=== PATIENT | female | born 1990 | race Caucasian/White ===

== ENCOUNTER 2016-09-23 10:50 | Emergency (ER) | payer OTHER ==
[2016-09-23 11:10] VITALS: BP 144/83
--- NOTE | 2016-09-23 11:37 | EDM.PDOC ---
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 Patient is 7, almost 8 weeks . Last menstrual period was July 31. Due date is May 07. She is a . She has miscarried twice earlier this year, both around for 5 weeks. Patient reports that last Sunday she developed cramping and pressure. She states that she had some spotting. She was seen at the OB clinic where she had blood drawn. She states she was then scheduled for an ultrasound on Sunday. Everything was fine with her . She is unsure of her blood type. She believes her Quant was around 32,000. She reports that her symptoms resolved. She now has developed lower abdominal and pelvic pain radiating to her back that started last night. She states the pain is worse than it was earlier this week. No vaginal bleeding, vaginal discharge, dysuria, hematuria, flank pain, nausea or vomiting. Patient reports that she initially had nausea, dry heaves, breast tenderness and increased urination but these have mostly resolved. Patient reports last night the pain was very severe. She was utilize a heating pad which seemed to help her symptoms. movement made pain worse. She said it hurt to sit or stand. She has not taken any Tylenol. Patient is currently on a vitamin. She is otherwise healthy with no known medical conditions. She has a history of anemia. Location: Reports: Abdomen, Back, Pelvis Lower Pelvic Pain Score (Numeric/FACES): 4 - Related Data Allergies Allergy/AdvReac Type Severity Reaction Status Date / Time amoxicillin Allergy Rash Verified 09/23/16 11:06 bactrim Allergy Rash Uncoded 09/23/16 11:06 Home Meds: Home Meds . 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 Denies: Fever GI/Abdominal: Reports: Abdominal Pain. Denies: Nausea, Vomiting : Reports: Pain (pelvic pain), Other (no vaginal bleeding or discharge). Denies: Dysuria, Hematuria Musculoskeletal: Reports: Back Pain ED EXAM - Physical Exam Exam: See Below Exam Limited By: No Limitations General Appearance: Alert, WD/WN, No Apparent Distress Respiratory/Chest: No Respiratory Distress, Lungs Clear, Normal Breath Sounds Cardiovascular: Normal Peripheral Pulses GI/Abdominal Exam: Normal Bowel Sounds, Soft, Non-Tender (Female) Exam: Vaginal Discharge (white discharge with a slight brown tinge) . No: Cervical Dilatation, Cervical Discharge, Vaginal Bleeding Neurological: Alert, Oriented, CN II-XII Intact, Normal Cognition Psychiatric: Normal Affect, Normal Mood Skin Exam: Warm, Dry, Normal Color Course - Vital Signs Last Recorded V/S: Last Vital Signs Temp 36.9 C 09/23/16 11:09 Pulse 101 H 09/23/16 11:09 Resp 20 09/23/16 11:09 BP 144/83 H 09/23/16 11:09 Pulse Ox 99 09/23/16 11:09 - Orders/Labs/Meds Orders: Active Orders 24 hr Category Date Time Status ABO/RH TYPE [BBK] Stat Lab 09/23/16 11:41 Results PATIENT RETYPE [BBK] Stat Lab 09/23/16 11:41 Results Labs: Laboratory Tests 09/23/16 09/23/16 09/23/16 Range/Units 11:35 11:41 11:41 WBC 9.57 (3.98-10.04) K/mm3 RBC 4.61 (3.98-5.22) M/mm3 Hgb 13.3 (11.2-15.7) gm/L Hct 38.0 (34.1-44.9) % MCV 82.4 (79.4-94.8) fl MCH 28.9 (25.6-32.2) pg MCHC 35.0 (32.2-35.5) g/dl RDW Std Deviation 39.3 (36.4-46.3) fL Plt Count 239 (182-369) K/mm3 MPV 10.2 (9.4-12.3) fl Neut % (Auto) 75.5 H (34.0-71.1) % Lymph % (Auto) 18.1 L (19.3-51.7) % [place] % (Auto) 5.9 (4.7-12.5) % Eos % (Auto) 0.2 L (0.7-5.8) Baso % (Auto) 0.2 (0.1-1.2) % Neut # (Auto) 7.23 H (1.56-6.13) K/mm3 Lymph # (Auto) 1.73 (1.18-3.74) K/mm3 [place] # (Auto) 0.56 H (0.24-0.36) K/mm3 Eos # (Auto) 0.02 L (0.04-0.36) K/mm3 Baso # (Auto) 0.02 (0.01-0.08) K/mm3 HCG, Quant 305908.0 mIU/mL Urine Color Yellow (Yellow) Urine Appearance Clear (Clear) Urine pH 7.0 (5.0-8.0) Ur Specific [place] 1.020 (1.005-1.030) Urine Protein Negative (Negative) Urine Glucose (UA) Negative (Negative) Urine Ketones Negative (Negative) Urine Occult Blood Trace-intact H (Negative) Urine Nitrite Negative (Negative) Urine Bilirubin Negative (Negative) Urine Urobilinogen 0.2 (0.2-1.0) Ur Leukocyte Esterase Negative (Negative) Urine RBC Not seen (0-5) /hpf Urine WBC 0-5 (0-5) /hpf Ur Epithelial Cells 0-5 (0-5) /hpf Ur Squamous Epith Cells 0-5 (0-5) /hpf Amorphous Sediment Few H (NOT SEEN) /hpf Urine Bacteria Few (FEW) /hpf Urine Mucus Not seen (FEW) /hpf Blood Type 09/23/16 Range/Units 11:41 WBC (3.98-10.04) K/mm3 RBC (3.98-5.22) M/mm3 Hgb (11.2-15.7) gm/L Hct (34.1-44.9) % MCV (79.4-94.8) fl MCH (25.6-32.2) pg MCHC (32.2-35.5) g/dl RDW Std Deviation (36.4-46.3) fL Plt Count (182-369) K/mm3 MPV (9.4-12.3) fl Neut % (Auto) (34.0-71.1) % Lymph % (Auto) (19.3-51.7) % [place] % (Auto) (4.7-12.5) % Eos % (Auto) (0.7-5.8) Baso % (Auto) (0.1-1.2) % Neut # (Auto) (1.56-6.13) K/mm3 Lymph # (Auto) (1.18-3.74) K/mm3 [place] # (Auto) (0.24-0.36) K/mm3 Eos # (Auto) (0.04-0.36) K/mm3 Baso # (Auto) (0.01-0.08) K/mm3 HCG, Quant mIU/mL Urine Color (Yellow) Urine Appearance (Clear) Urine pH (5.0-8.0) Ur Specific [place] (1.005-1.030) Urine Protein (Negative) Urine Glucose (UA) (Negative) Urine Ketones (Negative) Urine Occult Blood (Negative) Urine Nitrite (Negative) Urine Bilirubin (Negative) Urine Urobilinogen (0.2-1.0) Ur Leukocyte Esterase (Negative) Urine RBC (0-5) /hpf Urine WBC (0-5) /hpf Ur Epithelial Cells (0-5) /hpf Ur Squamous Epith Cells (0-5) /hpf Amorphous Sediment (NOT SEEN) /hpf Urine Bacteria (FEW) /hpf Urine Mucus (FEW) /hpf Blood Type O POSITIVE - Re-Assessments/Exams Free Text/Narrative Re-Assessment/Exam: 09/23/16 13:26 I reviewed the lab results with the patient. HCG is 151,761. White blood cell count is 9.57, hemoglobin 13.3 and platelets are 239. UA has trace intact blood, negative for nitrites leukocytes. At this time I feel it is unlikely she is miscarrying, however, it is a possibility. She is having no vaginal bleeding. No blood on vaginal exam. I will have her continue with her current plan of care. She should take Tylenol if she experiences pain. This is most likely pain associated with a normal . She has an ultrasound scheduled for Sunday. I will have her follow up with her OB this week as planned. Discharge instructions as documented. Departure - Departure Time of Disposition: 13:27 Disposition: Home, Self-Care 01 Condition: Fair Clinical Impression: Pelvic pain affecting - Discharge Information Instructions: Pelvic Pain, Female, [id number] Referrals: Raissa Chapman MD [Primary Care Provider] - Forms: ED Department Discharge Additional Instructions: Follow-up with your CORPORATE RELATIONS DIRECTOR provider this week as planned. Take [id number] Tylenol as needed for pain. Continue to use a heating pad as needed. Please return to the ER if your symptoms change or worsen. - My Orders Last 24 Hours: My Active Orders 09/23/16 11:41 ABO/RH TYPE [BBK] Stat PATIENT RETYPE [BBK] Stat - Assessment/Plan Last 24 Hours: My Active Orders 09/23/16 11:41 ABO/RH TYPE [BBK] Stat PATIENT RETYPE [BBK] Stat
== END 2016-09-23 13:41 | disposition home or self-care (01) ==
LOC: JD.ED 10:50 → SUPCPDRO 10:50 → JD.ED 13:41
DX: O26.891 Other specified pregnancy related conditions, first trimester (principal); R10.2 Pelvic and perineal pain; Z98.818 Other dental procedure status; Z88.1 Allergy status to other antibiotic agents; Z3A.01 Less than 8 weeks gestation of pregnancy
CPT/HCPCS: 36415; 81001; 84702; 85025; 86900; 86901; 99283; 99284

== ENCOUNTER 2017-05-06 04:34 | Inpatient (IN) | payer OTHER ==
[2017-05-06] MEDS ORDERED: Nalbuphine 20 MG/1 ML Amp IVPUSH PRN (05:10)
[2017-05-06] MEDS ORDERED: Lidocaine 1% 50 ML MDV INJECT PRN (05:10)
[2017-05-06] MEDS ORDERED: Sodium Chloride 0.9% 10 ML Syringe FLUSH PRN (05:10)
[2017-05-06] MEDS ORDERED: Ondansetron 4 MG/2 ML SDV IVPUSH PRN (05:10)
[2017-05-06] MEDS ORDERED: Oxytocin/Lactated Ringers 10 UNIT/1,000 ML BAG IV SCH (05:15)
[2017-05-06] MEDS ORDERED: Lactated Ringers 1,000 ML IV SCH (05:15)
--- NOTE | 2017-05-06 07:17 | PCM.LDHP ---
L&D History of Present Illness - General Date of Service: 05/06/17 Admit Problem/Dx: Patient Status Order with Admit Dx/Problem 05/06/17 05:10 Patient Status [ADT] Routine Admission Diagnosis/Problem Admission Diagnosis/Problem Source of Information: Patient History Limitations: Reports: No Limitations - History of Present Illness Introduction:: Patient is a 26 y/o at 39 6/7 wks who presents with SROM. ROM occurred at about 0300 this AM. Has been wilberto more since that time. No other concerns. - Related Data Allergies/Adverse Reactions: Allergies Allergy/AdvReac Type Severity Reaction Status Date / Time amoxicillin Allergy Rash Verified 09/23/16 11:06 clarithromycin Allergy Rash Verified 05/06/17 05:10 bactrim Allergy Rash Uncoded 09/23/16 11:06 Home Medications: Home Meds . 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: , Spontaneous : 3 Para: 0 LMP (Approximate): Musculoskeletal History: Reports: Other (See Below) (Scoliosis) Neurological History: Reports: Concussion, Migraines Other Neuro History: Hx 3 concussions and hx migraine headache, not during Dermatologic History: Reports: Other (See Below) Other Dermatologic History: Acne and rosacia - Past Surgical History HEENT Surgical History: Reports: Oral Surgery Other HEENT Surgeries/Procedures: [place] teeth removed at age 18 Social & Family History - Family History Family Medical History: Noncontributory - Tobacco Use Smoking Status *Q: Never Smoker Second Hand Smoke Exposure: No - Caffeine Use Caffeine Use: Reports: None - Alcohol Use Alcohol Use History: No - Recreational Drug Use Recreational Drug Use: No H&P Review of Systems - Review of Systems: Review Of Systems: See Below General: Reports: No Symptoms Pulmonary: Reports: No Symptoms Cardiovascular: Reports: No Symptoms 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: Reports: No Symptoms Genitourinary: Reports: No Symptoms Musculoskeletal: Reports: No Symptoms Psychiatric: Reports: No Symptoms Neurological: Reports: No Symptoms L&D Exam - Exam Exam: See Below - Vital Signs Vital Signs: Last Vital Signs Temp 37.4 C 05/06/17 05:10 Pulse 86 05/06/17 05:10 Resp 14 05/06/17 05:10 BP 113/70 05/06/17 05:10 Pulse Ox 100 05/06/17 05:10 Weight: 67.585 kg - OB Specific Contraction Intensity: Moderate Movement: Active Heart Tones: Present Heart Tones per Min: 135 Heart Rate (FHR) Variability: Moderate (6-25 bmp) Presentation: Vertex - Exam General: Alert, Oriented, Cooperative Lungs: Clear to Auscultation, Normal Respiratory Effort Cardiovascular: Regular Rate, Regular Rhythm GI/Abdominal Exam: Soft, Non-Tender Genitourinary: Normal external exam Extremities: Normal Inspection Skin: Warm, Dry, Intact - Patient Data Lab Results Last 24 hrs: Laboratory Results - last 24 hr 05/06/17 Range/Units 05:35 WBC 9.59 (3.98-10.04) K/mm3 RBC 3.71 L (3.98-5.22) M/mm3 Hgb 10.8 L (11.2-15.7) gm/L Hct 31.9 L (34.1-44.9) % MCV 86.0 (79.4-94.8) fl MCH 29.1 (25.6-32.2) pg MCHC 33.9 (32.2-35.5) g/dl RDW Std Deviation 40.9 (36.4-46.3) fL Plt Count 191 (182-369) K/mm3 MPV 10.0 (9.4-12.3) fl Neut % (Auto) 68.7 (34.0-71.1) % Lymph % (Auto) 21.1 (19.3-51.7) % [place] % (Auto) 7.6 (4.7-12.5) % Eos % (Auto) 2.0 (0.7-5.8) Baso % (Auto) 0.2 (0.1-1.2) % Neut # (Auto) 6.59 H (1.56-6.13) K/mm3 Lymph # (Auto) 2.02 (1.18-3.74) K/mm3 [place] # (Auto) 0.73 H (0.24-0.36) K/mm3 Eos # (Auto) 0.19 (0.04-0.36) K/mm3 Baso # (Auto) 0.02 (0.01-0.08) K/mm3 Result Diagrams: 05/06/17 05:35 - Problem List (1) 39 weeks gestation of SNOMED Code(s): 30853948 ICD Code: Z3A.39 - 39 WEEKS GESTATION OF Status: Acute Current Visit: Yes (2) SROM (spontaneous rupture of membranes) SNOMED Code(s): 930550569 ICD Code: [id number] - Status: Acute Current Visit: Yes Problem List Initiated/Reviewed/Updated: Yes Orders Last 24hrs: Active Orders 24 hr Category Date Time Status Patient Status [ADT] Routine ADT 05/06/17 05:10 Active Activity as Tolerated [RC] PFP Care 05/06/17 05:10 Active Communication Order [RC] ASDIRECTED Care 05/06/17 05:10 Active Heart Tones [RC] ASDIRECTED Care 05/06/17 05:11 Active Notify Provider [RC] PFP Care 05/06/17 05:10 Active Notify Provider [RC] PRN Care 05/06/17 05:10 Active Peripheral IV Care [RC] . DIRECTED Care 05/06/17 05:11 Active Vital Signs [RC] PER UNIT ROUTINE Care 05/06/17 05:10 Active Regular Diet [DIET] Diet 05/06/17 Breakfast Active Lactated Ringers [Ringers, Lactated] 1,000 ml Med 05/06/17 05:15 Active IV ASDIRECTED Lidocaine 1% [Xylocaine 1%] Med 05/06/17 05:10 Active 50 ml INJECT ONETIME PRN Nalbuphine [Nubain] Med 05/06/17 05:10 Active 10 mg IVPUSH Q2H PRN Ondansetron [Zofran] Med 05/06/17 05:10 Active 4 mg IVPUSH Q4H PRN Oxytocin/Lactated Ringers [Pitocin in LR 10 Units/1,000 Med 05/06/17 05:15 Active ML] 10 unit in 1,000 ml IV .CONTINUOUS Sodium Chloride 0.9% [Saline Flush] Med 05/06/17 05:10 Active 10 ml FLUSH ASDIRECTED PRN Electronic Heart Tones Ext w TOCO [WOMSER] Oth 05/06/17 05:10 Ordered Routine Electronic Heart Tones Internal [WOMSER] Per Unit Oth 05/06/17 05:10 Ordered Routine Peripheral IV Insertion Adult [OM.PC] Routine Oth 05/06/17 05:10 Ordered Resuscitation Status Routine Resus Stat 05/06/17 05:10 Ordered Medication Orders Lactated Ringer's (Ringers, Lactated) 1,000 mls @ 100 mls/hr IV ASDIRECTED ARACELI Oxytocin/Lactated Ringer's (Pitocin In Lr 10 Units/1,000 Ml) 10 unit in 1,000 mls @ 500 mls/hr IV .CONTINUOUS ARACELI Lidocaine HCl (Xylocaine 1%) 50 ml INJECT ONETIME PRN PRN Reason: Pain Nalbuphine HCl (Nubain) 10 mg IVPUSH Q2H PRN PRN Reason: Pain (moderate 4-6) Ondansetron HCl (Zofran) 4 mg IVPUSH Q4H PRN PRN Reason: Nausea/Vomiting Sodium Chloride (Saline Flush) 10 ml FLUSH ASDIRECTED PRN PRN Reason: Keep Vein Open Assessment/Plan Comment:: 26 y/o at 39 6/7 wks presents for SROM * CBC and T&S * GBS negative, no need for antibiotics * Allow patient to continue labor without need for augmentation * Pain management per patient preference. Will have anesthesia visit with patient given history of scoliosis * Anticipate
[2017-05-06] MEDS ORDERED: fentaNYL 100 MCG/2 ML SDV EPIDUR PRN (08:44)
[2017-05-06] MEDS ORDERED: diphenhydrAMINE 50 MG/ML SDV IVPUSH PRN (08:44)
[2017-05-06] MEDS ORDERED: ePHEDrine 50 MG/ML SDV IVPUSH PRN (08:44)
[2017-05-06] MEDS ORDERED: Bupivacaine/fentaNYL/NS 100 ML Bag EPIDUR SCH (08:45)
--- NOTE | 2017-05-06 09:18 | PCM.PREANE ---
Preanesthetic Assessment - Anesthesia/Transfusion/Family Hx Anesthesia History: Prior Anesthesia Without Reaction Family History of Anesthesia Reaction: No Transfusion History: No Prior Transfusion(s) - Review of Systems General: No Symptoms Pulmonary: No Symptoms Cardiovascular: No Symptoms 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: No Symptoms Neurological: No Symptoms - Physical Assessment Pulse: 86 O2 Sat by Pulse Oximetry: 100 Respiratory Rate: 14 Blood Pressure: 113/70 Temperature: 37.4 C Vital Signs: Last Vital Signs Temp 37.4 C 05/06/17 05:10 Pulse 86 05/06/17 05:10 Resp 14 05/06/17 05:10 BP 113/70 05/06/17 05:10 Pulse Ox 100 05/06/17 05:10 Height: 1.6 m Weight: 67.585 kg ASA Class: 2 Mental Status: Alert & Oriented x3 Airway Class: Mallampati = 1 Dentition: Reports: Normal Dentition, Broken Tooth/Teeth (bottom 2nd to back left), Caries (bottom 2nd to back left) Thyro-Mental Finger Breadths: 3 Mouth Opening Finger Breadths: 3 ROM/Head Extension: Full Lungs: Clear to Auscultation, Normal Respiratory Effort Cardiovascular: Regular Rate, Regular Rhythm, No Murmurs - Lab Values: Laboratory Last Values WBC 9.59 K/mm3 (3.98-10.04) 05/06/17 05:35 RBC 3.71 M/mm3 (3.98-5.22) L 05/06/17 05:35 Hgb 10.8 gm/L (11.2-15.7) L 05/06/17 05:35 Hct 31.9 % (34.1-44.9) L 05/06/17 05:35 MCV 86.0 fl (79.4-94.8) 05/06/17 05:35 MCH 29.1 pg (25.6-32.2) 05/06/17 05:35 MCHC 33.9 g/dl (32.2-35.5) 05/06/17 05:35 RDW Std Deviation 40.9 fL (36.4-46.3) 05/06/17 05:35 Plt Count 191 K/mm3 (182-369) 05/06/17 05:35 MPV 10.0 fl (9.4-12.3) 05/06/17 05:35 Neut % (Auto) 68.7 % (34.0-71.1) 05/06/17 05:35 Lymph % (Auto) 21.1 % (19.3-51.7) 05/06/17 05:35 [place] % (Auto) 7.6 % (4.7-12.5) 05/06/17 05:35 Eos % (Auto) 2.0 (0.7-5.8) 05/06/17 05:35 Baso % (Auto) 0.2 % (0.1-1.2) 05/06/17 05:35 Neut # (Auto) 6.59 K/mm3 (1.56-6.13) H 05/06/17 05:35 Lymph # (Auto) 2.02 K/mm3 (1.18-3.74) 05/06/17 05:35 [place] # (Auto) 0.73 K/mm3 (0.24-0.36) H 05/06/17 05:35 Eos # (Auto) 0.19 K/mm3 (0.04-0.36) 05/06/17 05:35 Baso # (Auto) 0.02 K/mm3 (0.01-0.08) 05/06/17 05:35 - Allergies Allergies/Adverse Reactions: Allergies Allergy/AdvReac Type Severity Reaction Status Date / Time amoxicillin Allergy Rash Verified 09/23/16 11:06 clarithromycin Allergy Rash Verified 05/06/17 05:10 bactrim Allergy Rash Uncoded 09/23/16 11:06 - Anesthesia Plan Pre-Op Medication Ordered: None - Acknowledgements Anesthesia Type Planned: Epidural Pt an Appropriate Candidate for the Planned Anesthesia: Yes Alternatives and Risks of Anesthesia Discussed w Pt/Guardian: Yes Pt/Guardian Understands and Agrees with Anesthesia Plan: Yes PreAnesthesia Questionnaire HEENT History: Reports: None 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 History: Reports: GERD, Hemorrhoids Other 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 History: 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: , 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 Musculoskeletal History: Reports: Other (See Below) (Scoliosis) Neurological History: Reports: Concussion, Migraines Other Neuro History: Hx 3 concussions and hx migraine headache, not during Dermatologic History: Reports: Other (See Below) Other Dermatologic History: Acne and rosacia - Past Surgical History HEENT Surgical History: Reports: Oral Surgery Other HEENT Surgeries/Procedures: [place] teeth removed at age 18 - SUBSTANCE USE Smoking Status *Q: Never Smoker Tobacco Use Within Last Twelve Months: No Second Hand Smoke Exposure: No Recreational Drug Use History: No - HOME MEDS Home Medications: Home Meds . [No Known Home Meds] 09/23/16 [History] Pnv No.95/Ferrous Fum/Folic AC [ Multivitamin Tablet] 1 tab PO DAILY [History] - CURRENT (IN HOUSE) MEDS Current Meds: Current Medications Diphenhydramine HCl (Benadryl) 25 mg IVPUSH Q6H PRN PRN Reason: Itching Ephedrine Sulfate (Ephedrine Sulfate) 5 mg IVPUSH ASDIRECTED PRN PRN Reason: HYPOTENTSION Fentanyl (Sublimaze) 100 mcg EPIDUR Q3H PRN PRN Reason: PAIN Fentanyl/Bupivacaine HCl (Fentanyl/Bupivacaine/Ns 2 Mcg-0.125% 100 Ml) 100 ml EPIDUR ASDIRECTED ARACELI Lactated Ringer's (Ringers, Lactated) 1,000 mls @ 100 mls/hr IV ASDIRECTED ARACELI Oxytocin/Lactated Ringer's (Pitocin In Lr 10 Units/1,000 Ml) 10 unit in 1,000 mls @ 500 mls/hr IV .CONTINUOUS ARACELI Lidocaine HCl (Xylocaine 1%) 50 ml INJECT ONETIME PRN PRN Reason: Pain Nalbuphine HCl (Nubain) 10 mg IVPUSH Q2H PRN PRN Reason: Pain (moderate 4-6) Ondansetron HCl (Zofran) 4 mg IVPUSH Q4H PRN PRN Reason: Nausea/Vomiting Last Admin: 05/06/17 09:04 Dose: 4 mg Sodium Chloride (Saline Flush) 10 ml FLUSH ASDIRECTED PRN PRN Reason: Keep Vein Open
[2017-05-06] MEDS ORDERED: Misoprostol 200 MCG Tab ONE (12:52)
--- NOTE | 2017-05-06 13:08 | PCM.DEL ---
L & D Note - General Info Date of Service: 05/06/17 - Delivery Note Labor: Spontaneous Delivery Outcome: Livebirth Delivery Method: Spontaneous Vaginal Delivery-Single Delivery Mode: Spontaneous Presentation: Right Occiput Anterior (REBECCA) Nuchal Cord: None Anesthesia Type: None Amniotic Fluid Description: Meconium Stained Episiotomy Type: None Laceration: Other (Left sided labia hematoma) Placenta: Intact, Spontaneous Cord: 3 Vessels Estimated Blood Loss: 350 Resuscitation Needed: Yes : Suctioned, Bulb Syringe, Stimulated, Warmed, [place] Used, Warmer Used Score 1 min: 9 Score 5 min: 9 Post Delivery Events: Shoulder Dystocia Delivery Comments (Free Text/Narrative):: Patient found to be complete and began pushing. With maternal pushing effort head delivered from an REBECCA presentation. Shoulders did not deliver with gentle downward traction. Patient put in deeper McRobert's and shoulders still did not deliver with further downward traction. Suprapubic pressure applied and anterior shoulder did deliver with this intervention. Total length of time of dystocia about 25 seconds. Remainder of quickly followed. Cord clamped and cut. Baby handed to awaiting mat sewer. Cord blood obtained. Placenta allowed time to separate and expelled intact. No laceration noted after delivery, but patient with about 3 cm sized left labial hematoma. This was stable. There was some lower uterine segment atony after delivery and she did have a sweep of the KELLEN and was given 600 mcg of buccal cytotec with good response. - Patient Data Vitals - Most Recent: Last Vital Signs Temp 37.4 C 05/06/17 09:18 Pulse 86 05/06/17 09:18 Resp 14 05/06/17 09:18 BP 113/70 05/06/17 09:18 Pulse Ox 100 05/06/17 09:18 Weight - Most Recent: 67.585 kg Lab Results Last 24 Hours: Laboratory Results - last 24 hr 05/06/17 Range/Units 05:35 WBC 9.59 (3.98-10.04) K/mm3 RBC 3.71 L (3.98-5.22) M/mm3 Hgb 10.8 L (11.2-15.7) gm/L Hct 31.9 L (34.1-44.9) % MCV 86.0 (79.4-94.8) fl MCH 29.1 (25.6-32.2) pg MCHC 33.9 (32.2-35.5) g/dl RDW Std Deviation 40.9 (36.4-46.3) fL Plt Count 191 (182-369) K/mm3 MPV 10.0 (9.4-12.3) fl Neut % (Auto) 68.7 (34.0-71.1) % Lymph % (Auto) 21.1 (19.3-51.7) % [place] % (Auto) 7.6 (4.7-12.5) % Eos % (Auto) 2.0 (0.7-5.8) Baso % (Auto) 0.2 (0.1-1.2) % Neut # (Auto) 6.59 H (1.56-6.13) K/mm3 Lymph # (Auto) 2.02 (1.18-3.74) K/mm3 [place] # (Auto) 0.73 H (0.24-0.36) K/mm3 Eos # (Auto) 0.19 (0.04-0.36) K/mm3 Baso # (Auto) 0.02 (0.01-0.08) K/mm3 Med Orders - Current: Current Medications Diphenhydramine HCl (Benadryl) 25 mg IVPUSH Q6H PRN PRN Reason: Itching Ephedrine Sulfate (Ephedrine Sulfate) 5 mg IVPUSH ASDIRECTED PRN PRN Reason: HYPOTENTSION Fentanyl (Sublimaze) 100 mcg EPIDUR Q3H PRN PRN Reason: PAIN Fentanyl/Bupivacaine HCl (Fentanyl/Bupivacaine/Ns 2 Mcg-0.125% 100 Ml) 100 ml EPIDUR ASDIRECTED ARACELI Lactated Ringer's (Ringers, Lactated) 1,000 mls @ 100 mls/hr IV ASDIRECTED ARACELI Oxytocin/Lactated Ringer's (Pitocin In Lr 10 Units/1,000 Ml) 10 unit in 1,000 mls @ 500 mls/hr IV .CONTINUOUS ARACELI Lidocaine HCl (Xylocaine 1%) 50 ml INJECT ONETIME PRN PRN Reason: Pain Nalbuphine HCl (Nubain) 10 mg IVPUSH Q2H PRN PRN Reason: Pain (moderate 4-6) Last Admin: 05/06/17 10:33 Dose: 10 mg Ondansetron HCl (Zofran) 4 mg IVPUSH Q4H PRN PRN Reason: Nausea/Vomiting Last Admin: 05/06/17 09:04 Dose: 4 mg Sodium Chloride (Saline Flush) 10 ml FLUSH ASDIRECTED PRN PRN Reason: Keep Vein Open Discontinued Medications Misoprostol (Cytotec) Confirm Administered Dose 600 mcg .ROUTE .STK-MED ONE Stop: 05/06/17 12:53 - Problem List & Annotations (1) 39 weeks gestation of SNOMED Code(s): 98266773 Code(s): Z3A.39 - 39 WEEKS GESTATION OF Status: Acute Current Visit: Yes (2) SROM (spontaneous rupture of membranes) SNOMED Code(s): 966721156 Code(s): VGJ6964 - Status: Acute Current Visit: Yes (3) Shoulder dystocia during labor and delivery, delivered SNOMED Code(s): 45676042 Code(s): O66.0 - OBSTRUCTED LABOR DUE TO SHOULDER DYSTOCIA Status: Acute Current Visit: Yes - Problem List Review Problem List Initiated/Reviewed/Updated: Yes - My Orders Last 24 Hours: My Active Orders 05/06/17 05:10 Patient Status [ADT] Routine Activity as Tolerated [RC] PFP Communication Order [RC] ASDIRECTED Notify Provider [RC] PFP Notify Provider [RC] PRN Vital Signs [RC] PER UNIT ROUTINE Lidocaine 1% [Xylocaine 1%] 50 ml INJECT ONETIME PRN Nalbuphine [Nubain] 10 mg IVPUSH Q2H PRN Ondansetron [Zofran] 4 mg IVPUSH Q4H PRN Sodium Chloride 0.9% [Saline Flush] 10 ml FLUSH ASDIRECTED PRN Electronic Heart Tones Ext w TOCO [WOMSER] Routine Electronic Heart Tones Internal [WOMSER] Per Unit Routine Peripheral IV Insertion Adult [OM.PC] Routine Resuscitation Status Routine 05/06/17 05:11 Heart Tones [RC] ASDIRECTED Peripheral IV Care [RC] . DIRECTED 05/06/17 05:15 Lactated Ringers [Ringers, Lactated] 1,000 ml IV ASDIRECTED Oxytocin/Lactated Ringers [Pitocin in LR 10 Units/1,000 ML] 10 unit in 1,000 ml IV .CONTINUOUS 05/06/17 Breakfast Regular Diet [DIET] - Assessment Assessment:: 26 y/o G3 now P1021 PPD#0 from at 39 6/7 wks - Plan Plan:: * Routine cares * Encourage breast feeding * Discharge home in 1-2 days
[2017-05-06] MEDS ORDERED: Misoprostol 200 MCG Tab PO STA (13:10)
[2017-05-06] MEDS ORDERED: Lanolin 100% Cream 7 GM Tube TOP PRN (14:03)
[2017-05-06] MEDS ORDERED: Benzocaine/Menthol 20%-0.5% Spray 56 GM Canister TOP PRN (14:03)
[2017-05-06] MEDS ORDERED: Witch Hazel Medicated Pads 100/Jar TOP PRN (14:03)
[2017-05-06] MEDS ORDERED: Docusate Sodium 100 MG Cap PO PRN (14:03)
[2017-05-06] MEDS ORDERED: Acetaminophen 325 MG Tab PO PRN (14:03)
[2017-05-06] MEDS: Ibuprofen 600 MG Tab PO PRN (18:33)
[2017-05-07] MEDS: Ibuprofen 600 MG Tab PO PRN ×3 (00:17→19:18)
--- NOTE | 2017-05-07 07:19 | PCM.PNPP ---
- General Info Date of Service: 05/07/17 Functional Status: Reports: Pain Controlled, Tolerating Diet, Ambulating, Urinating - Review of Systems General: Reports: No Symptoms Pulmonary: Reports: No Symptoms Cardiovascular: Reports: No Symptoms 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: Reports: No Symptoms Genitourinary: Reports: No Symptoms - Patient Data Vital Signs - Most Recent: Last Vital Signs Temp 37.1 C 05/07/17 04:38 Pulse 74 05/07/17 04:38 Resp 15 05/07/17 04:38 BP 105/61 05/07/17 04:38 Pulse Ox 95 05/07/17 04:38 Weight - Most Recent: 67.585 kg I&O - Last 24 Hours: Intake & Output 05/06/17 05/07/17 05/07/17 22:59 06:59 14:59 Intake Total 1999 Balance 1999 Med Orders - Current: Current Medications Acetaminophen (Tylenol) 650 mg PO Q4H PRN PRN Reason: mild pain or fever Benzocaine/Menthol (Dermoplast Pain Relief [place]) 0 gm TOP ASDIRECTED PRN PRN Reason: Perineal Comfort Measure Last Admin: 05/06/17 18:35 Dose: 1 canister Docusate Sodium (Colace) 100 mg PO BID PRN PRN Reason: Constipation Emollient Ointment (Lansinoh Hpa) 0 gm TOP ASDIRECTED PRN PRN Reason: Sore Nipples Ibuprofen (Motrin) 600 mg PO Q6H PRN PRN Reason: Mild pain or fever Last Admin: 05/07/17 00:17 Dose: 600 mg Witch Jaylin (Tucks) 1 pad TOP ASDIRECTED PRN PRN Reason: Hemorrhoid pain Last Admin: 05/06/17 18:35 Dose: 1 carton Discontinued Medications Diphenhydramine HCl (Benadryl) 25 mg IVPUSH Q6H PRN PRN Reason: Itching Ephedrine Sulfate (Ephedrine Sulfate) 5 mg IVPUSH ASDIRECTED PRN PRN Reason: HYPOTENTSION Fentanyl (Sublimaze) 100 mcg EPIDUR Q3H PRN PRN Reason: PAIN Fentanyl/Bupivacaine HCl (Fentanyl/Bupivacaine/Ns 2 Mcg-0.125% 100 Ml) 100 ml EPIDUR ASDIRECTED ARACELI Lactated Ringer's (Ringers, Lactated) 1,000 mls @ 100 mls/hr IV ASDIRECTED ARACELI Last Admin: 05/06/17 15:10 Dose: 100 mls/hr Oxytocin/Lactated Ringer's (Pitocin In Lr 10 Units/1,000 Ml) 10 unit in 1,000 mls @ 500 mls/hr IV .CONTINUOUS ARACELI Last Admin: 05/06/17 15:09 Dose: 500 mls/hr Lidocaine HCl (Xylocaine 1%) 50 ml INJECT ONETIME PRN PRN Reason: Pain Misoprostol (Cytotec) Confirm Administered Dose 600 mcg .ROUTE .STK-MED ONE Stop: 05/06/17 12:53 Last Admin: 05/06/17 15:09 Dose: Not Given Misoprostol (Cytotec) 600 mcg PO NOW STA Stop: 05/06/17 13:11 Last Admin: 05/06/17 12:55 Dose: 600 mcg Nalbuphine HCl (Nubain) 10 mg IVPUSH Q2H PRN PRN Reason: Pain (moderate 4-6) Last Admin: 05/06/17 10:33 Dose: 10 mg Ondansetron HCl (Zofran) 4 mg IVPUSH Q4H PRN PRN Reason: Nausea/Vomiting Last Admin: 05/06/17 09:04 Dose: 4 mg Sodium Chloride (Saline Flush) 10 ml FLUSH ASDIRECTED PRN PRN Reason: Keep Vein Open - Interaction Disposition, : in Room with Family Interaction: Holding Infant Feeding: Attempted ; Nursed Fair/Poor Support Person: - Recovery Exam Fundal Tone: Firms with Massage Fundal Level: 1 Fingerbreadths Below Umbilicus Fundal Placement: Midline Lochia Amount: Scant, Small Lochia Color: Rubra/Red Perineum Description: Intact, Minimal Bruising/Swelling, Hematoma, Other (see below) Other Perinuem Description: Hematoma with no increase in size/pain Episiotomy/Laceration: None Bladder Status: Nonpalpable Urinary Elimination: Voided Other Urinary Elimination, : Up to RR to void immed following assessment - Exam General: Alert, Oriented, Cooperative GI/Abdominal Exam: Soft, Non-Tender Extremities: Normal Inspection Skin: Warm, Dry, Intact - Problem List & Annotations (1) 39 weeks gestation of SNOMED Code(s): 83351451 Code(s): Z3A.39 - 39 WEEKS GESTATION OF Status: Acute Current Visit: Yes (2) SROM (spontaneous rupture of membranes) SNOMED Code(s): 320155512 Code(s): IVF9450 - Status: Acute Current Visit: Yes (3) Shoulder dystocia during labor and delivery, delivered SNOMED Code(s): 43388341 Code(s): O66.0 - OBSTRUCTED LABOR DUE TO SHOULDER DYSTOCIA Status: Acute Current Visit: Yes (4) Vaginal delivery SNOMED Code(s): 465596284 Code(s): O80 - ENCOUNTER FOR FULL-TERM UNCOMPLICATED DELIVERY Status: Acute Current Visit: Yes - Problem List Review Problem List Initiated/Reviewed/Updated: Yes - My Orders Last 24 Hours: My Active Orders 05/06/17 14:03 Activity as Tolerated [RC] PER UNIT ROUTINE Vital Signs [RC] 04,12,20 Acetaminophen [Tylenol] 650 mg PO Q4H PRN Benzocaine/Menthol [Dermoplast Pain Relief [place]] See Dose Instructions TOP ASDIRECTED PRN Docusate Sodium [Colace] 100 mg PO BID PRN Ibuprofen [Motrin] 600 mg PO Q6H PRN Lanolin [Lansinoh HPA] See Dose Instructions TOP ASDIRECTED PRN Witch Jaylin [Tucks] 1 pad TOP ASDIRECTED PRN Assess Lochia [WOMSER] Per Unit Routine Assess Uterine Involution [WOMSER] Per Unit Routine Breast Pump [WOMSER] Per Unit Routine Heat Therapy [OM.PC] PRN Ice Therapy [OM.PC] Per Unit Routine Perineal Care [OM.PC] Per Unit Routine Peripheral IV Discontinue [OM.PC] Routine Sitz Bath [OM.PC] Per Unit Routine 05/06/17 Lunch Regular Diet [DIET] 05/07/17 14:03 Heat Therapy [OM.PC] PRN - Assessment Assessment:: 26 y/o G3 now P1021 PPD#1 from at 39 6/7 wks - Plan Plan:: * Routine cares * Encourage breast feeding * Discharge home tomorrow
--- NOTE | 2017-05-08 01:32 | PCM.DCSUM1 ---
Discharge Summary - Discharge Data Discharge Date: 05/08/17 Discharge Disposition: Home, Self-Care 01 Condition: Good - Discharge Diagnosis/Problem(s) (1) 39 weeks gestation of SNOMED Code(s): 91226533 ICD Code: Z3A.39 - 39 WEEKS GESTATION OF Status: Acute Current Visit: Yes (2) SROM (spontaneous rupture of membranes) SNOMED Code(s): 902417433 ICD Code: [id number] - Status: Acute Current Visit: Yes (3) Shoulder dystocia during labor and delivery, delivered SNOMED Code(s): 57830793 ICD Code: O66.0 - OBSTRUCTED LABOR DUE TO SHOULDER DYSTOCIA Status: Acute Current Visit: Yes (4) Vaginal delivery SNOMED Code(s): 812802297 ICD Code: O80 - ENCOUNTER FOR FULL-TERM UNCOMPLICATED DELIVERY Status: Acute Current Visit: Yes - Patient Summary/Data Complications: None Consults: None Recommended Follow-up Testing/Procedures: Follow up in 3-6 weeks for check Hospital Course: Patient is a 26 y/o at 39 6/7 wks presented with SROM. She progressed well without need for augmentation and underwent an uncomplicated . See delivery note for full details. she did well and was discharged home on PPD#2. - Patient Instructions Diet: Regular Diet as Tolerated Activity: As Tolerated Activity, Other: Pelvic Rest for 6 weeks Driving: May Drive Today Showering/Bathing: May Shower Showering/Bathing, Other: May Bathe Notify Provider of: Fever, Increased Pain, Swelling and Redness, Drainage, Nausea and/or Vomiting - Discharge Plan Home Medications: Home Meds Pnv No.95/Ferrous Fum/Folic AC [ Multivitamin Tablet] 1 tab PO DAILY [History] Docusate Sodium [Colace] 100 mg PO BID PRN cap 05/06/17 [Rx] Ibuprofen [IJD: Ibuprofen] 600 mg PO Q6H PRN tablet 05/06/17 [Rx] Referrals: Raissa Chapman MD [Primary Care Provider] - (3-6 weeks for check ) - Discharge Summary/Plan Comment DC Time >30 min.: No - Patient Data Vitals - Most Recent: Last Vital Signs Temp 36.8 C 05/07/17 20:37 Pulse 66 05/07/17 20:37 Resp 16 05/07/17 11:43 BP 102/60 05/07/17 20:37 Pulse Ox 96 05/07/17 20:37 Weight - Most Recent: 67.585 kg I&O - Last 24 hours: Intake & Output 05/07/17 05/07/17 05/08/17 14:59 22:59 06:59 Intake Total 180 Balance 180 Med Orders - Current: Current Medications Acetaminophen (Tylenol) 650 mg PO Q4H PRN PRN Reason: mild pain or fever Benzocaine/Menthol (Dermoplast Pain Relief [place]) 0 gm TOP ASDIRECTED PRN PRN Reason: Perineal Comfort Measure Last Admin: 05/06/17 18:35 Dose: 1 canister Docusate Sodium (Colace) 100 mg PO BID PRN PRN Reason: Constipation Emollient Ointment (Lansinoh Hpa) 0 gm TOP ASDIRECTED PRN PRN Reason: Sore Nipples Last Admin: 05/07/17 10:25 Dose: 1 applic Ibuprofen (Motrin) 600 mg PO Q6H PRN PRN Reason: Mild pain or fever Last Admin: 05/07/17 19:18 Dose: 600 mg Witch Jaylin (Tucks) 1 pad TOP ASDIRECTED PRN PRN Reason: Hemorrhoid pain Last Admin: 05/06/17 18:35 Dose: 1 carton Discontinued Medications Diphenhydramine HCl (Benadryl) 25 mg IVPUSH Q6H PRN PRN Reason: Itching Ephedrine Sulfate (Ephedrine Sulfate) 5 mg IVPUSH ASDIRECTED PRN PRN Reason: HYPOTENTSION Fentanyl (Sublimaze) 100 mcg EPIDUR Q3H PRN PRN Reason: PAIN Fentanyl/Bupivacaine HCl (Fentanyl/Bupivacaine/Ns 2 Mcg-0.125% 100 Ml) 100 ml EPIDUR ASDIRECTED ARACELI Lactated Ringer's (Ringers, Lactated) 1,000 mls @ 100 mls/hr IV ASDIRECTED ARACELI Last Admin: 05/06/17 15:10 Dose: 100 mls/hr Oxytocin/Lactated Ringer's (Pitocin In Lr 10 Units/1,000 Ml) 10 unit in 1,000 mls @ 500 mls/hr IV .CONTINUOUS ARACELI Last Admin: 05/06/17 15:09 Dose: 500 mls/hr Lidocaine HCl (Xylocaine 1%) 50 ml INJECT ONETIME PRN PRN Reason: Pain Misoprostol (Cytotec) Confirm Administered Dose 600 mcg .ROUTE .STK-MED ONE Stop: 05/06/17 12:53 Last Admin: 05/06/17 15:09 Dose: Not Given Misoprostol (Cytotec) 600 mcg PO NOW STA Stop: 05/06/17 13:11 Last Admin: 05/06/17 12:55 Dose: 600 mcg Nalbuphine HCl (Nubain) 10 mg IVPUSH Q2H PRN PRN Reason: Pain (moderate 4-6) Last Admin: 05/06/17 10:33 Dose: 10 mg Ondansetron HCl (Zofran) 4 mg IVPUSH Q4H PRN PRN Reason: Nausea/Vomiting Last Admin: 05/06/17 09:04 Dose: 4 mg Sodium Chloride (Saline Flush) 10 ml FLUSH ASDIRECTED PRN PRN Reason: Keep Vein Open *Q Meaningful Use (DIS) - VTE *Q VTE Criteria *Q: - Stroke *Q Stroke Criteria *Q: - AMI *Q AMI Criteria *Q:
--- NOTE | 2017-05-08 01:32 | PCM.PNPP ---
- General Info Date of Service: 05/08/17 Functional Status: Reports: Pain Controlled, Tolerating Diet, Ambulating, Urinating - Review of Systems General: Reports: No Symptoms Pulmonary: Reports: No Symptoms Cardiovascular: Reports: No Symptoms 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: Reports: No Symptoms Genitourinary: Reports: No Symptoms Musculoskeletal: Reports: No Symptoms - Patient Data Vital Signs - Most Recent: Last Vital Signs Temp 36.8 C 05/07/17 20:37 Pulse 66 05/07/17 20:37 Resp 16 05/07/17 11:43 BP 102/60 05/07/17 20:37 Pulse Ox 96 05/07/17 20:37 Weight - Most Recent: 67.585 kg I&O - Last 24 Hours: Intake & Output 05/07/17 05/07/17 05/08/17 14:59 22:59 06:59 Intake Total 180 Balance 180 Med Orders - Current: Current Medications Acetaminophen (Tylenol) 650 mg PO Q4H PRN PRN Reason: mild pain or fever Benzocaine/Menthol (Dermoplast Pain Relief [place]) 0 gm TOP ASDIRECTED PRN PRN Reason: Perineal Comfort Measure Last Admin: 05/06/17 18:35 Dose: 1 canister Docusate Sodium (Colace) 100 mg PO BID PRN PRN Reason: Constipation Emollient Ointment (Lansinoh Hpa) 0 gm TOP ASDIRECTED PRN PRN Reason: Sore Nipples Last Admin: 05/07/17 10:25 Dose: 1 applic Ibuprofen (Motrin) 600 mg PO Q6H PRN PRN Reason: Mild pain or fever Last Admin: 05/07/17 19:18 Dose: 600 mg Witch Jaylin (Tucks) 1 pad TOP ASDIRECTED PRN PRN Reason: Hemorrhoid pain Last Admin: 05/06/17 18:35 Dose: 1 carton Discontinued Medications Diphenhydramine HCl (Benadryl) 25 mg IVPUSH Q6H PRN PRN Reason: Itching Ephedrine Sulfate (Ephedrine Sulfate) 5 mg IVPUSH ASDIRECTED PRN PRN Reason: HYPOTENTSION Fentanyl (Sublimaze) 100 mcg EPIDUR Q3H PRN PRN Reason: PAIN Fentanyl/Bupivacaine HCl (Fentanyl/Bupivacaine/Ns 2 Mcg-0.125% 100 Ml) 100 ml EPIDUR ASDIRECTED ARACELI Lactated Ringer's (Ringers, Lactated) 1,000 mls @ 100 mls/hr IV ASDIRECTED ARACELI Last Admin: 05/06/17 15:10 Dose: 100 mls/hr Oxytocin/Lactated Ringer's (Pitocin In Lr 10 Units/1,000 Ml) 10 unit in 1,000 mls @ 500 mls/hr IV .CONTINUOUS ARACELI Last Admin: 05/06/17 15:09 Dose: 500 mls/hr Lidocaine HCl (Xylocaine 1%) 50 ml INJECT ONETIME PRN PRN Reason: Pain Misoprostol (Cytotec) Confirm Administered Dose 600 mcg .ROUTE .STK-MED ONE Stop: 05/06/17 12:53 Last Admin: 05/06/17 15:09 Dose: Not Given Misoprostol (Cytotec) 600 mcg PO NOW STA Stop: 05/06/17 13:11 Last Admin: 05/06/17 12:55 Dose: 600 mcg Nalbuphine HCl (Nubain) 10 mg IVPUSH Q2H PRN PRN Reason: Pain (moderate 4-6) Last Admin: 05/06/17 10:33 Dose: 10 mg Ondansetron HCl (Zofran) 4 mg IVPUSH Q4H PRN PRN Reason: Nausea/Vomiting Last Admin: 05/06/17 09:04 Dose: 4 mg Sodium Chloride (Saline Flush) 10 ml FLUSH ASDIRECTED PRN PRN Reason: Keep Vein Open - Infant Interaction Infant Disposition, : [place] in Room with Family Infant Interaction: Holding Infant Feeding: Attempted ; Nursed Fair/Poor Support Person: - Recovery Exam Fundal Tone: Firm Fundal Level: At Umbilicus Fundal Placement: Midline Lochia Amount: Small Lochia Color: Rubra/Red Perineum Description: Intact, Minimal Bruising/Swelling, Hematoma, Other (see below) Other Perinuem Description: small left labial hematoma Episiotomy/Laceration: None Bladder Status: Voiding Urinary Elimination: Voided Other Urinary Elimination, : Up to RR to void immed following assessment - Exam General: Alert, Oriented, Cooperative GI/Abdominal Exam: Soft, Non-Tender Extremities: Normal Inspection Skin: Warm, Dry, Intact - Problem List & Annotations (1) 39 weeks gestation of SNOMED Code(s): 35076591 Code(s): Z3A.39 - 39 WEEKS GESTATION OF Status: Acute Current Visit: Yes (2) SROM (spontaneous rupture of membranes) SNOMED Code(s): 721235012 Code(s): FBI7204 - Status: Acute Current Visit: Yes (3) Shoulder dystocia during labor and delivery, delivered SNOMED Code(s): 08287960 Code(s): O66.0 - OBSTRUCTED LABOR DUE TO SHOULDER DYSTOCIA Status: Acute Current Visit: Yes (4) Vaginal delivery SNOMED Code(s): 803123127 Code(s): O80 - ENCOUNTER FOR FULL-TERM UNCOMPLICATED DELIVERY Status: Acute Current Visit: Yes - Problem List Review Problem List Initiated/Reviewed/Updated: Yes - My Orders Last 24 Hours: My Active Orders 05/07/17 14:03 Heat Therapy [OM.PC] PRN 05/08/17 01:31 Ready for Discharge [RC] PER UNIT ROUTINE - Assessment Assessment:: 26 y/o G3 now P1021 PPD#2 from at 39 6/7 wks - Plan Plan:: * Routine cares * Encourage breast feeding * Discharge home today
[2017-05-08 03:56] VITALS: BP 128/71
== END 2017-05-08 11:57 | disposition home or self-care (01) | DRG 775 ==
LOC: JD.OB 04:34 → JD.OBCHECK 04:34 → JD.OB 05:10 → OBSVTOIN 12:35 → JD.OB 12:35
PROVIDERS: ADMIT Obstetrics & Gynecology; ATTEND Obstetrics & Gynecology
PROC: 10E0XZZ Delivery of Products of Conception, External Approach (ICD-10-PCS; principal; 2017-05-06)
DX: O42.02 Full-term premature rupture of membranes, onset of labor within 24 hours of rupture (principal); O77.0 Labor and delivery complicated by meconium in amniotic fluid; O66.0 Obstructed labor due to shoulder dystocia; Z37.0 Single live birth; Z3A.39 39 weeks gestation of pregnancy; Z88.1 Allergy status to other antibiotic agents
CPT/HCPCS: 36415; 59409; 85025; A9270-GY; J2300; J2405; J2590; J7120

== ENCOUNTER 2018-06-26 07:24 | Inpatient (IN) | payer BC ==
[2018-06-26] MEDS ORDERED: Ondansetron 4 MG/2 ML SDV IVPUSH PRN ×2 (08:46→20:55)
[2018-06-26] MEDS ORDERED: Nalbuphine 20 MG/ML 1 ML Syringe IVPUSH PRN (08:46)
[2018-06-26] MEDS ORDERED: Sodium Chloride 0.9% 10 ML Syringe FLUSH PRN (08:46)
--- NOTE | 2018-06-26 08:46 | PCM.LDHP ---
L&D History of Present Illness - General Date of Service: 06/26/18 Admit Problem/Dx: Patient Status Order with Admit Dx/Problem 06/26/18 07:30 Patient Status [ADT] Routine Admission Diagnosis/Problem Admission Diagnosis/Problem Source of Information: Patient History Limitations: Reports: No Limitations - History of Present Illness Introduction:: Patient is a 27-year-old 0-1 at 38-0/7 weeks gestation who presents with concerns of spontaneous rupture of membranes. States this morning at about 7 or so had initially a small trickle and then a large gush of fluid which she states soaked her underwear and pants. While here on labor and delivery has had small little trickles, but no lalito gush of fluid. Noting some contractions that have been slightly increasing in intensity since this morning. 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 : 4 Para: 1 LMP (Approximate): Musculoskeletal History: Reports: Other (See Below) (Scoliosis) Neurological History: Reports: Concussion Dermatologic History: Reports: Other (See Below) Other Dermatologic History: Acne and rosacia - Past Surgical History HEENT Surgical History: Reports: Oral Surgery Other HEENT Surgeries/Procedures: [place] teeth removed at age 18 Social & Family History - Family History Family Medical History: Noncontributory - Tobacco Use Smoking Status *Q: Never Smoker - Caffeine Use Caffeine Use: Reports: None - Alcohol Use Alcohol Use History: No - Recreational Drug Use Recreational Drug Use: No H&P Review of Systems - Review of Systems: Review Of Systems: See Below General: Reports: No Symptoms Pulmonary: Reports: No Symptoms Cardiovascular: Reports: No Symptoms 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: Reports: No Symptoms Genitourinary: Reports: No Symptoms Musculoskeletal: Reports: No Symptoms Psychiatric: Reports: No Symptoms Neurological: Reports: No Symptoms L&D Exam - Exam Exam: See Below - Vital Signs Weight: 68.492 kg - OB Specific Contraction Intensity: Mild Movement: Active Heart Tones: Present Heart Tones per Min: 140 Heart Rate (FHR) Variability: Moderate (6-25 bmp) Presentation: Vertex - Lewis Score Lewis Score Cervix Position: Midposition Lewis Score Consistency: Soft Lewis Score Effacement: 51-70% Lewis Score Dilation: 3-4 cm Lewis Score 's Station: -2 Lewis Score Total: 8 - Exam General: Alert, Oriented, Cooperative Lungs: Clear to Auscultation, Normal Respiratory Effort Cardiovascular: Regular Rate, Regular Rhythm GI/Abdominal Exam: Soft, Non-Tender Genitourinary: Normal external exam Back Exam: Normal Inspection Extremities: Normal Inspection Skin: Warm, Dry, Intact - Patient Data Result Diagrams: 06/26/18 08:56 - Problem List (1) 38 weeks gestation of SNOMED Code(s): 89261385 ICD Code: Z3A.38 - 38 WEEKS GESTATION OF Status: Acute Current Visit: Yes (2) SROM (spontaneous rupture of membranes) SNOMED Code(s): 009933310 ICD Code: INY8469 - Status: Acute Current Visit: No Problem List Initiated/Reviewed/Updated: Yes Orders Last 24hrs: Active Orders 24 hr Category Date Time Status Patient Status [ADT] Routine ADT 06/26/18 07:30 Active Non Stress Test [RC] PER UNIT ROUTINE Care 06/26/18 07:58 Active Up ad Nerissa [RC] ASDIRECTED Care 06/26/18 08:00 Active Vital Signs [RC] PER UNIT ROUTINE Care 06/26/18 07:58 Active Regular Diet [DIET] Diet 06/26/18 Breakfast Active Resuscitation Status Routine Resus Stat 06/26/18 07:58 Ordered Assessment/Plan Comment:: 27-year-old at 38-0/7 weeks gestation who presents with SROM * Labs on admission * GBS negative, no need for antibiotics * Will allow several hours to see if labor begins by itself. If not we will proceed with Pitocin for augmentation * Baby with known sameera-vertebrae at approximately 28. Has seen MFM throughout . No contraindication to local delivery. [facility] recommendations for spine imaging although timing of this is at the discretion of the pediatric team. We'll make them aware * Pain management per patient preference * Anticipate
[2018-06-26] MEDS ORDERED: Oxytocin/Lactated Ringers 10 UNIT/1,000 ML BAG IV SCH ×2 (09:00→12:15)
[2018-06-26] MEDS ORDERED: Lactated Ringers 1,000 ML IV SCH (09:00)
--- NOTE | 2018-06-26 12:13 | PCM.SN ---
- Free Text/Narrative Note: 1200 Patient doing well. Note contractions are only a /. Will defer SVE. Start pitocin for augmentation Raissa Chapman MD
--- NOTE | 2018-06-26 13:03 | PCM.PREANE ---
Preanesthetic Assessment - Procedure Proposed Procedure: henry - Anesthesia/Transfusion/Family Hx Anesthesia History: Prior Anesthesia Without Reaction Family History of Anesthesia Reaction: Other (see below) (grandma was allergic to it) Transfusion History: No Prior Transfusion(s) - Review of Systems General: No Symptoms Pulmonary: No Symptoms Cardiovascular: No Symptoms 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: No Symptoms, Nausea Neurological: No Symptoms Other: Reports: None - Physical Assessment Respiratory Rate: 16 Vital Signs: Last Vital Signs Temp 98.5 F 06/26/18 07:58 Pulse 93 06/26/18 07:58 Resp 16 06/26/18 07:58 BP 115/57 L 06/26/18 07:58 Pulse Ox Height: 5 ft 3 in Weight: 68.492 kg ASA Class: 2 Mental Status: Alert & Oriented x3 Airway Class: Mallampati = 1 Dentition: Reports: Normal Dentition Thyro-Mental Finger Breadths: 3 Mouth Opening Finger Breadths: 3 ROM/Head Extension: Full Lungs: Clear to Auscultation, Normal Respiratory Effort Cardiovascular: Regular Rate, Regular Rhythm - Lab Values: Laboratory Last Values WBC 7.39 K/mm3 (3.98-10.04) 06/26/18 08:56 RBC 3.66 M/mm3 (3.98-5.22) L 06/26/18 08:56 Hgb 11.1 gm/L (11.2-15.7) L D 06/26/18 08:56 Hct 32.9 % (34.1-44.9) L 06/26/18 08:56 MCV 89.9 fl (79.4-94.8) 06/26/18 08:56 MCH 30.3 pg (25.6-32.2) 06/26/18 08:56 MCHC 33.7 g/dl (32.2-35.5) 06/26/18 08:56 RDW Std Deviation 44.0 fL (36.4-46.3) 06/26/18 08:56 Plt Count 146 K/mm3 (182-369) L 06/26/18 08:56 MPV 9.7 fl (9.4-12.3) 06/26/18 08:56 Blood Type O POSITIVE 06/26/18 08:56 Gel Antibody Screen Negative 06/26/18 08:56 - Allergies Allergies/Adverse Reactions: Allergies Allergy/AdvReac Type Severity Reaction Status Date / Time amoxicillin Allergy Rash Verified 12/19/17 07:17 clarithromycin Allergy Rash Verified 12/19/17 07:17 bactrim Allergy Rash Uncoded 12/19/17 07:17 - Blood Blood Available: No - Acknowledgements Anesthesia Type Planned: Epidural Pt an Appropriate Candidate for the Planned Anesthesia: Yes Alternatives and Risks of Anesthesia Discussed w Pt/Guardian: Yes Pt/Guardian Understands and Agrees with Anesthesia Plan: Yes PreAnesthesia Questionnaire HEENT History: Reports: None Cardiovascular History: Reports: None Respiratory History: Reports: Other (See Below) Other Respiratory History: 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 History: Reports: Hemorrhoids Other 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 History: w/ only [employer] 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: , Spontaneous : 4 (38 weeks) Para: 1 Musculoskeletal History: Reports: Other (See Below) (Scoliosis) Neurological History: Reports: Concussion Other Neuro History: Hx 3 concussions and hx migraine headache, not during Dermatologic History: Reports: Other (See Below) Other Dermatologic History: Acne and rosacia - Infectious Disease History Infectious Disease History: Reports: None - Past Surgical History HEENT Surgical History: Reports: Oral Surgery Other HEENT Surgeries/Procedures: [place] teeth removed at age 18 - SUBSTANCE USE Smoking Status *Q: Never Smoker Tobacco Use Within Last Twelve Months: No Second Hand Smoke Exposure: Yes Days Per Week of Alcohol Use: 0 Recreational Drug Use History: No - HOME MEDS Home Medications: Home Meds Pnv No.95/Ferrous Fum/Folic AC [ Multivitamin Tablet] 1 tab PO DAILY [History] - CURRENT (IN HOUSE) MEDS Current Meds: Current Medications Lactated Ringer's (Ringers, Lactated) 1,000 mls @ 100 mls/hr IV ASDIRECTED ARACELI Last Admin: 06/26/18 12:46 Dose: 100 mls/hr Oxytocin/Lactated Ringer's (Pitocin In Lr 10 Units/1,000 Ml) 10 unit in 1,000 mls @ 500 mls/hr IV .CONTINUOUS ARACELI Oxytocin/Lactated Ringer's (Pitocin In Lr 10 Units/1,000 Ml) 10 unit in 1,000 mls @ 12 mls/hr IV TITRATE ARACELI; Protocol Last Admin: 06/26/18 12:47 Dose: 2 munits/min, 12 mls/hr Nalbuphine HCl (Nubain) 10 mg IVPUSH Q2H PRN PRN Reason: pain Ondansetron HCl (Zofran) 4 mg IVPUSH Q4H PRN PRN Reason: Nausea/Vomiting Sodium Chloride (Saline Flush) 10 ml FLUSH ASDIRECTED PRN PRN Reason: Keep Vein Open
[2018-06-26] MEDS ORDERED: fentaNYL/Bupivacaine-NS 2 MCG/ML-0.125%/PF 100 ML Bag EPIDUR PRN (13:22)
[2018-06-26] MEDS ORDERED: ePHEDrine 50 MG/ML SDV IVPUSH PRN (13:22)
[2018-06-26] MEDS ORDERED: diphenhydrAMINE 50 MG/ML SDV IVPUSH PRN (13:22)
[2018-06-26] MEDS ORDERED: fentaNYL 100 MCG/2 ML SDV EPIDUR PRN (13:22)
--- NOTE | 2018-06-26 17:09 | PCM.SN ---
- Free Text/Narrative Note: 1700 Patient started on pitocin at about 1300. Now checked patient and could feel slight forebag. Ruptured. Continue present management Raissa Chapman
[2018-06-26] MEDS ORDERED: Lidocaine 1% 50 ML MDV INJECT PRN (18:43)
[2018-06-26] MEDS ORDERED: Misoprostol 200 MCG Tab ONE (19:37)
[2018-06-26] MEDS ORDERED: Methylergonovine 0.2 MG/1 ML Amp ONE (19:38)
[2018-06-26] MEDS ORDERED: Misoprostol 200 MCG Tab PO ONE (19:39)
[2018-06-26] MEDS ORDERED: Methylergonovine 0.2 MG/1 ML Amp IM PRN (19:41)
[2018-06-26] MEDS ORDERED: ceFAZolin/Dextrose,Iso-Osmotic 2 GM/50 ML Duplex Bag IV ONE (19:42)
[2018-06-26] MEDS ORDERED: ceFAZolin 2 GM in Premix Bag 1 BAG IV ONE (19:45)
[2018-06-26] MEDS ORDERED: Carboprost Tromethamine 250 MCG/1 ML Amp IM ONE (19:49)
--- NOTE | 2018-06-26 20:17 | PCM.DEL ---
L & D Note - General Info Date of Service: 06/26/18 - Delivery Note Labor: Augmented by Oxytocin Delivery Outcome: Livebirth Delivery Method: Spontaneous Vaginal Delivery-Single Delivery Mode: Spontaneous Presentation: Left Occiput Anterior (STEVEN) Nuchal Cord: None Anesthesia Type: None Amniotic Fluid Description: Clear Episiotomy Type: None Laceration: None Placenta: Intact, Spontaneous Cord: 3 Vessels Estimated Blood Loss: 700 [place]: Bulb Syringe, Stimulated, Warmed, [place] Used, Warmer Used Delivery Comments (Free Text/Narrative):: Patient found to be complete and began pushing. With maternal pushing effort head delivered from an STEVEN presentation. No nuchal cord present. With gentle downward traction the shoulders and body delivered. Infant placed on maternal abdomen. Cord clamped and cut. Cord blood obtained. Placenta allowed time to separate and expelled intact. Immediately after delivery of placenta there was a hemorrhage. Patient initially given Cytotec, then Methergine, then Hemabate. Lastly was given tranexamic acid. With these medications and aggressive fundal massage bleeding did eventually harshad. Total EBL 700 cc. No laceration noted on the perineum. - General Info Date of Service: 06/26/18 - Patient Data Vitals - Most Recent: Last Vital Signs Temp 36.9 C 06/26/18 07:58 Pulse 93 06/26/18 07:58 Resp 16 06/26/18 13:03 BP 115/57 L 06/26/18 07:58 Pulse Ox Weight - Most Recent: 68.492 kg Lab Results Last 24 Hours: Laboratory Results - last 24 hr 06/26/18 06/26/18 Range/Units 08:56 08:56 WBC 7.39 (3.98-10.04) K/mm3 RBC 3.66 L (3.98-5.22) M/mm3 Hgb 11.1 L D (11.2-15.7) gm/L Hct 32.9 L (34.1-44.9) % MCV 89.9 (79.4-94.8) fl MCH 30.3 (25.6-32.2) pg MCHC 33.7 (32.2-35.5) g/dl RDW Std Deviation 44.0 (36.4-46.3) fL Plt Count 146 L (182-369) K/mm3 MPV 9.7 (9.4-12.3) fl Blood Type O POSITIVE Gel Antibody Screen Negative Med Orders - Current: Current Medications Diphenhydramine HCl (Benadryl) 25 mg IVPUSH Q6H PRN PRN Reason: pruritis Ephedrine Sulfate (Ephedrine Sulfate) 5 mg IVPUSH ASDIRECTED PRN PRN Reason: Hypotension Fentanyl (Sublimaze) 100 mcg EPIDUR Q3H PRN PRN Reason: Pain Fentanyl/Bupivacaine HCl (Kwnfcipl-Oqckx-Dj 2 Mcg/Ml-0.125%) 100 ml EPIDUR ONETIME PRN PRN Reason: Abdominal Pain Lactated Ringer's (Ringers, Lactated) 1,000 mls @ 100 mls/hr IV ASDIRECTED ARACELI Last Admin: 06/26/18 12:46 Dose: 100 mls/hr Oxytocin/Lactated Ringer's (Pitocin In Lr 10 Units/1,000 Ml) 10 unit in 1,000 mls @ 500 mls/hr IV .CONTINUOUS ARACELI Oxytocin/Lactated Ringer's (Pitocin In Lr 10 Units/1,000 Ml) 10 unit in 1,000 mls @ 12 mls/hr IV TITRATE ARACELI; Protocol Last Titration: 06/26/18 17:01 Dose: 12 munits/min, 72 mls/hr Lidocaine HCl (Xylocaine 1%) 50 ml INJECT ONETIME PRN PRN Reason: Pain Methylergonovine Maleate (Methergine) 0.2 mg IM Q4H PRN PRN Reason: Bleeding Last Admin: 06/26/18 19:57 Dose: 0.2 mg Nalbuphine HCl (Nubain) 10 mg IVPUSH Q2H PRN PRN Reason: pain Ondansetron HCl (Zofran) 4 mg IVPUSH Q4H PRN PRN Reason: Nausea/Vomiting Sodium Chloride (Saline Flush) 10 ml FLUSH ASDIRECTED PRN PRN Reason: Keep Vein Open Tranexamic Acid (Cyklokapron) 1,000 mg IVPUSH ONETIME ONE Stop: 06/26/18 19:52 Discontinued Medications Carboprost Tromethamine (Hemabate Ds) 250 mcg IM ONETIME ONE Stop: 06/26/18 19:50 Last Admin: 06/26/18 19:49 Dose: 250 mcg Cefazolin Sodium/Dextrose (Ancef) Confirm Administered Dose 2 gm IV .STK-MED ONE Stop: 06/26/18 19:43 Last Admin: 06/26/18 19:58 Dose: Not Given Cefazolin Sodium/Dextrose 2 gm (/ Premix) 50 mls @ 100 mls/hr IV ONETIME ONE Stop: 06/26/18 20:14 Last Admin: 06/26/18 19:45 Dose: 100 mls/hr Methylergonovine Maleate (Methergine) Confirm Administered Dose 0.2 mg .ROUTE .STK-MED ONE Stop: 06/26/18 19:39 Last Admin: 06/26/18 19:58 Dose: Not Given Misoprostol (Cytotec) Confirm Administered Dose 600 mcg .ROUTE .STK-MED ONE Stop: 06/26/18 19:38 Last Admin: 06/26/18 19:59 Dose: Not Given Misoprostol (Cytotec) 600 mcg PO STAT ONE Stop: 06/26/18 19:40 Last Admin: 06/26/18 19:39 Dose: 600 mcg Tranexamic Acid (Cyklokapron) Confirm Administered Dose 1,000 mg .ROUTE .STK- MED ONE Stop: 06/26/18 19:50 Last Admin: 06/26/18 19:55 Dose: 1,000 mg - Problem List & Annotations (1) 38 weeks gestation of SNOMED Code(s): 76070798 Code(s): Z3A.38 - 38 WEEKS GESTATION OF Status: Acute Current Visit: Yes (2) SROM (spontaneous rupture of membranes) SNOMED Code(s): 161946218 Code(s): VDA8519 - Status: Acute Current Visit: No (3) Vaginal delivery SNOMED Code(s): 978431326 Code(s): O80 - ENCOUNTER FOR FULL-TERM UNCOMPLICATED DELIVERY Status: Acute Current Visit: No (4) hemorrhage SNOMED Code(s): 21333449 Code(s): O72.1 - OTHER IMMEDIATE HEMORRHAGE Status: Acute Current Visit: Yes - Problem List Review Problem List Initiated/Reviewed/Updated: Yes - My Orders Last 24 Hours: My Active Orders 06/26/18 07:58 Vital Signs [RC] PER UNIT ROUTINE Resuscitation Status Routine 06/26/18 08:00 Up ad Nerissa [RC] ASDIRECTED 06/26/18 08:46 Patient Status [ADT] Routine Activity as Tolerated [RC] PFP Communication Order [RC] ASDIRECTED Notify Provider [RC] PFP Notify Provider [RC] PRN Peripheral IV Care [RC] . DIRECTED Nalbuphine [Nubain] 10 mg IVPUSH Q2H PRN Ondansetron [Zofran] 4 mg IVPUSH Q4H PRN Sodium Chloride 0.9% [Saline Flush] 10 ml FLUSH ASDIRECTED PRN Electronic Heart Tones Internal [WOMSER] Per Unit Routine Peripheral IV Insertion Adult [OM.PC] Routine 06/26/18 08:56 RAPID PLASMA REAGIN,RPR [CHEM] Routine 06/26/18 09:00 Lactated Ringers [Ringers, Lactated] 1,000 ml IV ASDIRECTED Oxytocin/Lactated Ringers [Pitocin in LR 10 Units/1,000 ML] 10 unit in 1,000 ml IV .CONTINUOUS 06/26/18 12:15 Oxytocin/Lactated Ringers [Pitocin in LR 10 Units/1,000 ML] 10 unit in 1,000 ml IV TITRATE 06/26/18 18:43 Lidocaine 1% [Xylocaine 1%] 50 ml INJECT ONETIME PRN 06/26/18 19:41 Methylergonovine [Methergine] 0.2 mg IM Q4H PRN 06/26/18 19:51 Tranexamic Acid [Cyklokapron] 1,000 mg IVPUSH ONETIME ONE 06/26/18 Breakfast Regular Diet [DIET] - Assessment Assessment:: 27-year-old G4 now P2 0-2 day #0 from at 38-0/7 weeks gestation - Plan Plan:: * Routine care * We'll check a CBC if patient begins to feel symptomatic * Encourage breast feeding * Discharge home in 2 days
[2018-06-26] MEDS ORDERED: Docusate Sodium 100 MG Cap PO PRN (20:24)
[2018-06-26] MEDS ORDERED: Lanolin 100% Cream 7 GM Tube TOP PRN (20:24)
[2018-06-26] MEDS ORDERED: Acetaminophen 325 MG Tab PO PRN (20:24)
[2018-06-26] MEDS ORDERED: Witch Hazel Medicated Pads 40/Jar TOP PRN (20:24)
[2018-06-26] MEDS ORDERED: Benzocaine/Menthol 20%-0.5% Spray 56 GM Canister TOP PRN (20:24)
[2018-06-26] MEDS: Ibuprofen 600 MG Tab PO PRN (21:21)
--- NOTE | 2018-06-27 06:28 | PCM.PNPP ---
- General Info Date of Service: 06/27/18 Functional Status: Reports: Pain Controlled, Tolerating Diet, Ambulating, Urinating - Review of Systems General: Reports: No Symptoms Pulmonary: Reports: No Symptoms Cardiovascular: Reports: No Symptoms 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: Reports: Abdominal Pain (cramping) Genitourinary: Reports: No Symptoms Musculoskeletal: Reports: No Symptoms Neurological: Reports: No Symptoms - Patient Data Vital Signs - Most Recent: Last Vital Signs Temp 37.5 C 06/27/18 03:00 Pulse 64 06/27/18 03:00 Resp 16 06/27/18 03:00 BP 99/47 L 06/27/18 03:00 Pulse Ox 95 06/27/18 03:00 Weight - Most Recent: 68.492 kg I&O - Last 24 Hours: Intake & Output 06/26/18 06/26/18 06/27/18 14:59 22:59 06:59 Intake Total 2100 Balance 2100 Lab Results - Last 24 Hours: Laboratory Results - last 24 hr 06/26/18 06/26/18 Range/Units 08:56 08:56 WBC 7.39 (3.98-10.04) K/mm3 RBC 3.66 L (3.98-5.22) M/mm3 Hgb 11.1 L D (11.2-15.7) gm/L Hct 32.9 L (34.1-44.9) % MCV 89.9 (79.4-94.8) fl MCH 30.3 (25.6-32.2) pg MCHC 33.7 (32.2-35.5) g/dl RDW Std Deviation 44.0 (36.4-46.3) fL Plt Count 146 L (182-369) K/mm3 MPV 9.7 (9.4-12.3) fl Blood Type O POSITIVE Gel Antibody Screen Negative Med Orders - Current: Current Medications Acetaminophen (Tylenol) 650 mg PO Q4H PRN PRN Reason: mild pain or fever Benzocaine/Menthol (Dermoplast Pain Relief [place]) 0 gm TOP ASDIRECTED PRN PRN Reason: Perineal Comfort Measure Last Admin: 06/26/18 21:21 Dose: 1 spray Docusate Sodium (Colace) 100 mg PO BID PRN PRN Reason: Constipation Emollient Ointment (Lansinoh Hpa) 0 gm TOP ASDIRECTED PRN PRN Reason: Sore Nipples Ibuprofen (Motrin) 600 mg PO Q6H PRN PRN Reason: Mild pain or fever Last Admin: 06/26/18 21:21 Dose: 600 mg Ondansetron HCl (Zofran) 4 mg IVPUSH Q8H PRN PRN Reason: Nausea Last Admin: 06/26/18 21:11 Dose: 4 mg Witch [place]lin (Tucks) 1 pad TOP ASDIRECTED PRN PRN Reason: Pain Last Admin: 06/26/18 21:20 Dose: 1 applic Discontinued Medications Carboprost Tromethamine (Hemabate Ds) 250 mcg IM ONETIME ONE Stop: 06/26/18 19:50 Last Admin: 06/26/18 19:49 Dose: 250 mcg Cefazolin Sodium/Dextrose (Ancef) Confirm Administered Dose 2 gm IV .STK-MED ONE Stop: 06/26/18 19:43 Last Admin: 06/26/18 19:58 Dose: Not Given Diphenhydramine HCl (Benadryl) 25 mg IVPUSH Q6H PRN PRN Reason: pruritis Ephedrine Sulfate (Ephedrine Sulfate) 5 mg IVPUSH ASDIRECTED PRN PRN Reason: Hypotension Fentanyl (Sublimaze) 100 mcg EPIDUR Q3H PRN PRN Reason: Pain Fentanyl/Bupivacaine HCl (Xwfybtws-Nkdvu-Jn 2 Mcg/Ml-0.125%) 100 ml EPIDUR ONETIME PRN PRN Reason: Abdominal Pain Lactated Ringer's (Ringers, Lactated) 1,000 mls @ 100 mls/hr IV ASDIRECTED ARACELI Last Admin: 06/26/18 12:46 Dose: 100 mls/hr Oxytocin/Lactated Ringer's (Pitocin In Lr 10 Units/1,000 Ml) 10 unit in 1,000 mls @ 500 mls/hr IV .CONTINUOUS ARACELI Oxytocin/Lactated Ringer's (Pitocin In Lr 10 Units/1,000 Ml) 10 unit in 1,000 mls @ 12 mls/hr IV TITRATE ARACELI; Protocol Last Titration: 06/26/18 17:01 Dose: 12 munits/min, 72 mls/hr Cefazolin Sodium/Dextrose 2 gm (/ Premix) 50 mls @ 100 mls/hr IV ONETIME ONE Stop: 06/26/18 20:14 Last Admin: 06/26/18 19:45 Dose: 100 mls/hr Lidocaine HCl (Xylocaine 1%) 50 ml INJECT ONETIME PRN PRN Reason: Pain Methylergonovine Maleate (Methergine) Confirm Administered Dose 0.2 mg .ROUTE .STK-MED ONE Stop: 06/26/18 19:39 Last Admin: 06/26/18 19:58 Dose: Not Given Methylergonovine Maleate (Methergine) 0.2 mg IM Q4H PRN PRN Reason: Bleeding Last Admin: 06/26/18 19:57 Dose: 0.2 mg Misoprostol (Cytotec) Confirm Administered Dose 600 mcg .ROUTE .STK-MED ONE Stop: 06/26/18 19:38 Last Admin: 06/26/18 19:59 Dose: Not Given Misoprostol (Cytotec) 600 mcg PO STAT ONE Stop: 06/26/18 19:40 Last Admin: 06/26/18 19:39 Dose: 600 mcg Nalbuphine HCl (Nubain) 10 mg IVPUSH Q2H PRN PRN Reason: pain Ondansetron HCl (Zofran) 4 mg IVPUSH Q4H PRN PRN Reason: Nausea/Vomiting Sodium Chloride (Saline Flush) 10 ml FLUSH ASDIRECTED PRN PRN Reason: Keep Vein Open Tranexamic Acid (Cyklokapron) Confirm Administered Dose 1,000 mg .ROUTE .STK- MED ONE Stop: 06/26/18 19:50 Last Admin: 06/26/18 19:55 Dose: 1,000 mg Tranexamic Acid (Cyklokapron) 1,000 mg IVPUSH ONETIME ONE Stop: 06/26/18 19:52 Last Admin: 06/27/18 00:34 Dose: Not Given - Interaction Infant Disposition, : [place] in Room with Family Interaction: Holding Infant Feeding: Attempted ; Nursed Fair/Poor Support Person: - Recovery Exam Fundal Tone: Firm Fundal Level: At Umbilicus Lochia Amount: Small Lochia Color: Rubra/Red Perineum Description: Intact, Minimal Bruising/Swelling Bladder Status: Voiding - Exam General: Alert, Oriented, Cooperative GI/Abdominal Exam: Soft, Non-Tender Extremities: Normal Inspection Skin: Warm, Dry, Intact - Problem List & Annotations (1) 38 weeks gestation of SNOMED Code(s): 47928903 Code(s): Z3A.38 - 38 WEEKS GESTATION OF Status: Acute Current Visit: Yes (2) SROM (spontaneous rupture of membranes) SNOMED Code(s): 494671106 Code(s): XRZ5637 - Status: Acute Current Visit: No (3) Vaginal delivery SNOMED Code(s): 495873577 Code(s): O80 - ENCOUNTER FOR FULL-TERM UNCOMPLICATED DELIVERY Status: Acute Current Visit: No (4) hemorrhage SNOMED Code(s): 19964057 Code(s): O72.1 - OTHER IMMEDIATE HEMORRHAGE Status: Acute Current Visit: Yes Qualifiers: hemorrhage type: other immediate Qualified Code(s): O72.1 - Other immediate hemorrhage - Problem List Review Problem List Initiated/Reviewed/Updated: Yes - My Orders Last 24 Hours: My Active Orders 06/26/18 07:58 Resuscitation Status Routine 06/26/18 08:56 RAPID PLASMA REAGIN,RPR [CHEM] Routine 06/26/18 20:24 Activity as Tolerated [RC] PER UNIT ROUTINE Vital Signs [RC] 09,15,21,03 Acetaminophen [Tylenol] 650 mg PO Q4H PRN Benzocaine/Menthol [Dermoplast Pain Relief [place]] See Dose Instructions TOP ASDIRECTED PRN Docusate Sodium [Colace] 100 mg PO BID PRN Ibuprofen [Motrin] 600 mg PO Q6H PRN Lanolin [Lansinoh HPA] See Dose Instructions TOP ASDIRECTED PRN Witch Jaylin [Tucks] 1 pad TOP ASDIRECTED PRN Assess Lochia [WOMSER] Per Unit Routine Assess Uterine Involution [WOMSER] Per Unit Routine Breast Pump [WOMSER] Per Unit Routine Ice Therapy [OM.PC] Per Unit Routine Perineal Care [OM.PC] Per Unit Routine Peripheral IV Discontinue [OM.PC] Routine Sitz Bath [OM.PC] Per Unit Routine 06/26/18 20:30 Heat Therapy [OM.PC] PRN 06/26/18 20:55 Ondansetron [Zofran] 4 mg IVPUSH Q8H PRN 06/26/18 Dinner Regular Diet [DIET] 06/27/18 20:30 Heat Therapy [OM.PC] PRN - Assessment Assessment:: 27 y/o PPD#1 from at 38 0/7 wks - Plan Plan:: * Routine cares * Will see how patient does today with activity. Can check a CBC if needed * Encourage breast feeding * Discharge home tomorrow
[2018-06-27] MEDS: Ibuprofen 600 MG Tab PO PRN ×3 (09:03→22:29)
--- NOTE | 2018-06-28 03:53 | PCM.DCSUM1 ---
Discharge Summary - Hospital Course Diagnosis: Stroke: No - Discharge Data Discharge Date: 06/28/18 Discharge Disposition: Home, Self-Care 01 Condition: Good - Patient Summary/Data Hospital Course: Admitted for labor, had significant hemorrhage requiring multiple medications. Otherwise unremarkable course. - Patient Instructions Diet: Usual Diet as Tolerated Activity: No Strenuous Activities Activity, Other: pelvic rest Driving: Do Not Drive Showering/Bathing: May Shower Notify Provider of: Fever, Increased Pain, Swelling and Redness, Drainage, Nausea and/or Vomiting - Discharge Plan *PRESCRIPTION DRUG MONITORING PROGRAM REVIEWED*: No *COPY OF PRESCRIPTION DRUG MONITORING REPORT IN PATIENT ROSA: No Home Medications: Home Meds Pnv No.95/Ferrous Fum/Folic AC [ Multivitamin Tablet] 1 tab PO DAILY [History] Referrals: Raissa Chapman MD [Primary Care Provider] - (1 week) - Discharge Summary/Plan Comment DC Time >30 min.: No - General Info Date of Service: 06/28/18 Functional Status: Reports: Pain Controlled - Review of Systems General: Reports: No Symptoms HEENT: Reports: No Symptoms Pulmonary: Reports: No Symptoms Cardiovascular: Reports: No Symptoms 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: Reports: No Symptoms Genitourinary: Reports: No Symptoms Musculoskeletal: Reports: No Symptoms Skin: Reports: No Symptoms Neurological: Reports: No Symptoms Psychiatric: Reports: No Symptoms - Patient Data Vitals - Most Recent: Last Vital Signs Temp 36.6 C 06/27/18 14:07 Pulse 63 06/27/18 20:30 Resp 14 06/27/18 14:07 BP 102/57 L 06/27/18 20:30 Pulse Ox 97 06/27/18 20:30 Weight - Most Recent: 68.492 kg I&O - Last 24 hours: Intake & Output 06/27/18 06/27/18 06/28/18 14:59 22:59 06:59 Intake Total 540 60 Balance 540 60 Lab Results - Last 24 hrs: Laboratory Results - last 24 hr 06/26/18 Range/Units 08:56 RPR Non-reactive (NONREACTIVE) Med Orders - Current: Current Medications Acetaminophen (Tylenol) 650 mg PO Q4H PRN PRN Reason: mild pain or fever Benzocaine/Menthol (Dermoplast Pain Relief [place]) 0 gm TOP ASDIRECTED PRN PRN Reason: Perineal Comfort Measure Last Admin: 06/26/18 21:21 Dose: 1 spray Docusate Sodium (Colace) 100 mg PO BID PRN PRN Reason: Constipation Emollient Ointment (Lansinoh Hpa) 0 gm TOP ASDIRECTED PRN PRN Reason: Sore Nipples Ibuprofen (Motrin) 600 mg PO Q6H PRN PRN Reason: Mild pain or fever Last Admin: 06/27/18 22:29 Dose: 600 mg Ondansetron HCl (Zofran) 4 mg IVPUSH Q8H PRN PRN Reason: Nausea Last Admin: 06/26/18 21:11 Dose: 4 mg Witch Jaylin (Tucks) 1 pad TOP ASDIRECTED PRN PRN Reason: Pain Last Admin: 06/26/18 21:20 Dose: 1 applic Discontinued Medications Carboprost Tromethamine (Hemabate Ds) 250 mcg IM ONETIME ONE Stop: 06/26/18 19:50 Last Admin: 06/26/18 19:49 Dose: 250 mcg Cefazolin Sodium/Dextrose (Ancef) Confirm Administered Dose 2 gm IV .STK-MED ONE Stop: 06/26/18 19:43 Last Admin: 06/26/18 19:58 Dose: Not Given Diphenhydramine HCl (Benadryl) 25 mg IVPUSH Q6H PRN PRN Reason: pruritis Ephedrine Sulfate (Ephedrine Sulfate) 5 mg IVPUSH ASDIRECTED PRN PRN Reason: Hypotension Fentanyl (Sublimaze) 100 mcg EPIDUR Q3H PRN PRN Reason: Pain Fentanyl/Bupivacaine HCl (Zggsmwqc-Vjzmw-Ic 2 Mcg/Ml-0.125%) 100 ml EPIDUR ONETIME PRN PRN Reason: Abdominal Pain Lactated Ringer's (Ringers, Lactated) 1,000 mls @ 100 mls/hr IV ASDIRECTED ARACELI Last Admin: 06/26/18 12:46 Dose: 100 mls/hr Oxytocin/Lactated Ringer's (Pitocin In Lr 10 Units/1,000 Ml) 10 unit in 1,000 mls @ 500 mls/hr IV .CONTINUOUS ARACELI Oxytocin/Lactated Ringer's (Pitocin In Lr 10 Units/1,000 Ml) 10 unit in 1,000 mls @ 12 mls/hr IV TITRATE ARACELI; Protocol Last Titration: 06/26/18 17:01 Dose: 12 munits/min, 72 mls/hr Cefazolin Sodium/Dextrose 2 gm (/ Premix) 50 mls @ 100 mls/hr IV ONETIME ONE Stop: 06/26/18 20:14 Last Admin: 06/26/18 19:45 Dose: 100 mls/hr Lidocaine HCl (Xylocaine 1%) 50 ml INJECT ONETIME PRN PRN Reason: Pain Methylergonovine Maleate (Methergine) Confirm Administered Dose 0.2 mg .ROUTE .STK-MED ONE Stop: 06/26/18 19:39 Last Admin: 06/26/18 19:58 Dose: Not Given Methylergonovine Maleate (Methergine) 0.2 mg IM Q4H PRN PRN Reason: Bleeding Last Admin: 06/26/18 19:57 Dose: 0.2 mg Misoprostol (Cytotec) Confirm Administered Dose 600 mcg .ROUTE .STK-MED ONE Stop: 06/26/18 19:38 Last Admin: 06/26/18 19:59 Dose: Not Given Misoprostol (Cytotec) 600 mcg PO STAT ONE Stop: 06/26/18 19:40 Last Admin: 06/26/18 19:39 Dose: 600 mcg Nalbuphine HCl (Nubain) 10 mg IVPUSH Q2H PRN PRN Reason: pain Ondansetron HCl (Zofran) 4 mg IVPUSH Q4H PRN PRN Reason: Nausea/Vomiting Sodium Chloride (Saline Flush) 10 ml FLUSH ASDIRECTED PRN PRN Reason: Keep Vein Open Tranexamic Acid (Cyklokapron) Confirm Administered Dose 1,000 mg .ROUTE .STK- MED ONE Stop: 06/26/18 19:50 Last Admin: 06/26/18 19:55 Dose: 1,000 mg Tranexamic Acid (Cyklokapron) 1,000 mg IVPUSH ONETIME ONE Stop: 06/26/18 19:52 Last Admin: 06/27/18 00:34 Dose: Not Given - Exam General: Reports: Alert, Oriented HEENT: Reports: Pupils Equal, Pupils Reactive, EOMI, Mucous Membr. Moist/[place] Neck: Reports: Supple Lungs: Reports: Clear to Auscultation, Normal Respiratory Effort Cardiovascular: Reports: Regular Rate, Regular Rhythm GI/Abdominal Exam: Normal Bowel Sounds, Soft, Non-Tender, No Organomegaly, No Distention, No Abnormal Bruit, No Mass, Pelvis Stable Rectal (Female) Exam: Normal Exam Back Exam: Reports: Normal Inspection, Full Range of Motion Extremities: Normal Inspection, Normal Range of Motion, Non-Tender, No Pedal Edema, Normal Capillary Refill Skin: Reports: Warm, Dry, Intact Wound/Incisions: Reports: Healing Well Neurological: Reports: No New Focal Deficit Psy/Mental Status: Reports: Alert, Normal Affect, Normal Mood
[2018-06-28 14:09] VITALS: BP 101/58
== END 2018-06-28 11:45 | disposition home or self-care (01) | DRG 560 ==
LOC: JD.OBCHECK 07:24 → JD.OB 07:24 → JD.OBCHECK 08:46 → JD.OB 08:46 → OBSVTOIN 19:29 → JD.MS 19:30 → JD.OB 06-27 13:39
PROVIDERS: ADMIT Obstetrics & Gynecology; ATTEND Obstetrics & Gynecology
PROC: 10E0XZZ Delivery of Products of Conception, External Approach (ICD-10-PCS; principal; 2018-06-26)
DX: O72.1 Other immediate postpartum hemorrhage (principal); Z3A.38 38 weeks gestation of pregnancy; Z37.0 Single live birth
CPT/HCPCS: 36415; 59025; 59409; 85027; 86592; 86850; 86900; 86901; A9270-GY; J0690; J2210; J2405; J2590; J7120

== ENCOUNTER 2024-10-06 07:00 | Inpatient (IN) | payer BC ==
[2024-10-06] MEDS ORDERED: Nalbuphine 10 MG/1 ML Vial IVPUSH PRN (07:09)
[2024-10-06] MEDS ORDERED: Ondansetron 4 MG/2 ML SDV IVPUSH PRN (07:09)
[2024-10-06] MEDS ORDERED: Sodium Chloride 0.9% 10 ML Syringe FLUSH PRN (07:09)
[2024-10-06] MEDS ORDERED: Oxytocin/0.9 % Sodium Chloride 30 UNIT/500 ML BAG IV SCH (07:15)
[2024-10-06] MEDS ORDERED: Lactated Ringers 1,000 ML IV SCH (07:15)
[2024-10-06 08:10] LABS: BASOPHILS ABSOLUTE AUTO 0.0 K/mm3 (0.0-0.2); BASOPHILS PERCENT AUTO 0.3 % (0.0-1.0); EOSINOPHILS ABSOLUTE AUTO 0.1 K/mm3 (0.0-0.4); EOSINOPHILS PERCENT AUTO 0.9 % (0.0-6.0); IMMATURE GRAN ABSOLUTE AUTO 0.06 K/mm3 (0.00-0.05); IMMATURE GRAN PERCENT AUTO 0.8 % (0.0-0.4); LYMPHOCYTES ABSOLUTE AUTO 2.5 K/mm3 (1.0-4.8); LYMPHOCYTES PERCENT AUTO 33.5 % (24.0-44.0); MEAN PLATELET VOLUME 10.9 fl (9.4-12.3); MONOCYTES ABSOLUTE AUTO 0.5 K/mm3 (0.0-0.8); MONOCYTES PERCENT AUTO 6.8 % (0.0-8.0); NEUTROPHILS ABSOLUTE AUTO 4.3 K/mm3 (1.8-7.7); NEUTROPHILS PERCENT AUTO 57.7 % (41.0-71.0); NRBC ABSOLUTE 0.00 (0.00-0.02); NRBC PERCENT 0.0 % (0.0-0.2); PLATELET COUNT,PLT 126 K/mm3 (150-400); RED BLOOD CELL COUNT 3.59 M/mm3 (4.10-5.30); WHITE BLOOD CELL COUNT,WBC 7.50 K/mm3 (3.9-11.3)
[2024-10-06] MEDS ORDERED: Sodium Chloride 0.9% 10 ML Syringe FLUSH SCH (09:00)
[2024-10-06] MEDS: Oxytocin/0.9 % Sodium Chloride 30 UNIT/500 ML BAG IV SCH (12:41)
[2024-10-06] MEDS: Witch Hazel Medicated Pads 40/Jar TOP PRN (15:28)
[2024-10-06] MEDS: Benzocaine/Menthol 20%-0.5% Spray 78 GM Cannister TOP PRN (15:28)
[2024-10-07 18:44] VITALS: BP 108/65; PULSE 64
== END 2024-10-07 17:40 | disposition home or self-care (01) | DRG 560 ==
LOC: JD.OB 07:00 → JD.OBCHECK 07:00 → JD.OB 07:09 → OBSVTOIN 12:41 → JD.OB 12:42 → JD.MS 16:21 → JD.OB 16:21
PROVIDERS: ADMIT Obstetrics & Gynecology; ATTEND Obstetrics & Gynecology
PROC: 10907ZC Drainage of Amniotic Fluid, Therapeutic from Products of Conception, Via Natural or Artificial Opening (ICD-10-PCS; principal; 2024-10-06)
PROC: 10E0XZZ Delivery of Products of Conception, External Approach (ICD-10-PCS; principal; 2024-10-06)
DX: O80 Encounter for full-term uncomplicated delivery (principal); Z3A.39 39 weeks gestation of pregnancy; Z37.0 Single live birth; Z88.0 Allergy status to penicillin; Z88.8 Allergy status to other drugs, medicaments and biological substances; Z79.899 Other long term (current) drug therapy; Z98.890 Other specified postprocedural states; Z14.1 Cystic fibrosis carrier
CPT/HCPCS: 36415; 59025; 59409; 85025; 86592; 86850; 86900; 86901; A9270-GY; J2210; J7999